=== PATIENT | female | born 1950 | race Two or more races ===

== ENCOUNTER 2017-01-16 10:27 | Outpatient (CLI) ==
[2015-04-16 22:26] VITALS: BMI 31.4
== END 2017-01-16 10:28 | disposition home or self-care (01) ==
LOC: AMBL 10:27
PROVIDERS: ATTEND Internal Medicine
DX: S41.112A Laceration without foreign body of left upper arm, initial encounter (principal); S41.111A Laceration without foreign body of right upper arm, initial encounter; R41.82 Altered mental status, unspecified; R53.1 Weakness; R47.81 Slurred speech; R00.1 Bradycardia, unspecified; W19.XXXA Unspecified fall, initial encounter; Z79.01 Long term (current) use of anticoagulants; Z86.73 Personal history of transient ischemic attack (TIA), and cerebral infarction without residual deficits